=== PATIENT | female | born 1970 | race Caucasian/White ===

== ENCOUNTER 2020-08-29 16:45 | Outpatient (CLI) | payer OTHER, BC, SELFPAY | END 2020-08-29 16:46 | disposition home or self-care (01) | LOC: ANHCOVIDVC 16:45 | PROVIDERS: PCP Internal Medicine | DX: Z23 Encounter for immunization (principal) | CPT/HCPCS: 0001A; 91300 ==

== ENCOUNTER 2020-09-19 16:45 | Outpatient (CLI) | payer OTHER, BC, SELFPAY ==
--- NOTE | 2020-09-19 17:01 | PC.NURSE ---
Patient had first vaccine August 29, positive covid test September 02, patient advised possible worsening of side effects, placed patient in private room. She was adamant about receiving second vaccine dose today.
== END 2020-09-19 16:46 | disposition home or self-care (01) ==
LOC: ANHCOVIDVC 16:45
PROVIDERS: PCP Internal Medicine
DX: Z23 Encounter for immunization (principal)
CPT/HCPCS: 0002A; 91300

== ENCOUNTER → 2021-12-27 11:12 | Outpatient (CLI) | payer BC, SELFPAY ==
--- NOTE | ~2021-12-27 | XR_ITS ---
XR foot LT min 3V DATE: 12/27/2021 11:28 INDICATION: Left foot injury TECHNIQUE: 3 views COMPARISON: None FINDINGS: Mild plantar and posterior calcaneal enthesopathy, without any associated periostitis or er osive change. No fracture or dislocation, periosteal reaction or bone destruction. IMPRESSION: Calcaneal enthesopathy No fracture or dislocation Reviewed, dictated and finalized at location A.
== END ==
PROVIDERS: PCP Family Medicine; Visit Provider Family Medicine
DX: S99.922A Unspecified injury of left foot, initial encounter (principal); X58.XXXA Exposure to other specified factors, initial encounter; M77.32 Calcaneal spur, left foot
CPT/HCPCS: 73630

== ENCOUNTER 2023-05-02 00:38 | Day surgery (SDC) | payer BC, SELFPAY ==
[2023-04-21 13:43] VITALS: BMI 23.3
--- NOTE | 2023-04-30 09:45 | SUR.PREOP ---
Patient called regarding upcoming procedure. Message left on patient's voicemail regarding preop instructions, appointment times, and procedure prep.
[2023-05-02 06:43] VITALS: BP 100/39; PULSE 110; RESP 16; TEMP 36.2; O2SAT 100; BMI 23.3
[2023-05-02] MEDS: LACTATED RINGERS 1,000 ML 150 ML IV CONT (06:52)
--- NOTE | 2023-05-02 07:25 | PM.HPGS ---
History of Present Illness History of Present Illness Consent: Risks, benefits, and alternatives have been discussed and questions answered. Patient agrees to proceed with procedure. Chief complaint: neoplasm screening Narrative: Gertrude Hammer is a 52 year old female Presents for screening colonoscopy. Patient's current weight appetite and bowel movements are normal. Patient denies abdominal pain. She has had no bleeding. Family history noncontributory. Review of Systems Review of Systems: Review of systems noncontributory. [facility] Past Medical History Medical History History of endometrial biopsy Wiley's metatarsalgia, neuralgia, or neuroma, bilateral Surgical History Surgical History H/O breast biopsy H/O foot surgery History of endometrial ablation diagnostic hysteroscopy; endometrial ablation using a NovaSure device History of tubal ligation Family History Family History Father Cancer Thyroid disorder Grandparent Cancer Heart problem Social History Social History (Updated 03/26/23 @ 16:03 by Crystal Avelar DO) Smoking packs per day: 0.5 Smoking cigarettes per day: 10.0 Years smoked: 20 Smoking pack-years: 10.00 Smoking status: Current some day smoker Tobacco type: cigarettes Alcohol intake: current Alcohol use details: Socially Substance use: never Substance use type: does not use Lack of Transportation: No Lack of Food: Never True Current Housing: I Have Housing Concerned About Future Housing: No Difficulty Paying Gas/Electric Bills: No Difficulty Paying for Meds: No Currently Unemployed: No Education: High School Diploma/GED Difficulty w/ Childcare or Family Care: No Living arrangements: with family Occupation/Education: occupation Gender identity (if verbalized by the patient): Female Sexual Orientation (if Verbalized by the Patient): Straight or Heterosexual Meds Home Medications and Allergies Home Medications Medication Instructions Recorded Confirmed Type bupropion HCl 150 mg tablet,12 hr 150 mg PO BID #180 tabs 01/16/23 05/02/23 Rx sustained-release Allergies Allergy/AdvReac Type Severity Reaction Status Date / Time No Known Allergies Allergy Mild Verified 05/02/23 06:41 Vital Signs Vital Signs - 24 hr 05/02/23 06:43 Temperature 97.1 F L Pulse Rate 110 H Respiratory Rate 16 Blood Pressure 100/39 L Pulse Oximetry 100 Oxygen Delivery Room Air Exam Narrative: Physical exam reveals patient to be alert. Vital signs stable. HEENT exam is unremarkable. Patient is anicteric. Lungs are clear to auscultation and percussion. Heart is without murmur or extra sounds. Abdomen bowel sounds are present soft nontender with no organomegaly. Digital external rectal exam is normal. Assessment and Plan Assessment and plan (1) Encounter for screening colonoscopy: Code(s): Z12.11 - Encounter for screening for malignant neoplasm of colon Status: Acute Assessment and Plan: patient presents today for screening colonoscopy. Further recommendations may be given after endoscopy.
--- NOTE | 2023-05-02 07:50 | WPDANESEPPF ---
Anes - Initial Pre Proc Eval Procedure: Operation Date: 05/02/23 08:00 Proposed Procedures p Screening Colonoscopy - Nilton Roque MD Date/Time: 05/02/23 07:50 Surgeon: Nilton Roque MD Pre Op Diagnosis: neoplasm screening Patient Data Age: 52 Gender: F Height: 1.73 m Weight: 69.7 kg Last Vital Signs Temp 97.1 F L 05/02/23 06:43 Pulse 110 H 05/02/23 06:43 Resp 16 05/02/23 06:43 BP 100/39 L 05/02/23 06:43 Pulse Ox 100 05/02/23 06:43 O2 Del Method Room Air 05/02/23 06:43 Allergies Allergy/AdvReac Type Severity Reaction Status Date / Time No Known Allergies Allergy Mild Verified 05/02/23 06:41 Home Medications Medication Instructions Recorded Confirmed Type bupropion HCl 150 mg tablet,12 hr 150 mg PO BID #180 tabs 01/16/23 05/02/23 Rx sustained-release Patient hx anesthesia problems: none Family hx anesthesia problems: none Results Review: All pre-operative results and documents have been reviewed as part of the pre-operative evaluation. [facility] Past Medical History Medical History History of endometrial biopsy Wiley's metatarsalgia, neuralgia, or neuroma, bilateral Surgical History Surgical History H/O breast biopsy H/O foot surgery History of endometrial ablation diagnostic hysteroscopy; endometrial ablation using a NovaSure device History of tubal ligation Family History Family History Father Cancer Thyroid disorder Grandparent Cancer Heart problem Social History Social History (Updated 03/26/23 @ 16:03 by Crystal Avelar DO) Smoking packs per day: 0.5 Smoking cigarettes per day: 10.0 Years smoked: 20 Smoking pack-years: 10.00 Smoking status: Current some day smoker Tobacco type: cigarettes Alcohol intake: current Alcohol use details: Socially Substance use: never Substance use type: does not use Lack of Transportation: No Lack of Food: Never True Current Housing: I Have Housing Concerned About Future Housing: No Difficulty Paying Gas/Electric Bills: No Difficulty Paying for Meds: No Currently Unemployed: No Education: High School Diploma/GED Difficulty w/ Childcare or Family Care: No Living arrangements: with family Occupation/Education: occupation Gender identity (if verbalized by the patient): Female Sexual Orientation (if Verbalized by the Patient): Straight or Heterosexual Anes - Eval Final PreProcedure Day of Procedure 05/02/23 07:50 Patient weight: normal Heart: regular rate and rhythm Lungs: clear to auscultation Airway: Mallampati scale class II Neurological: alert and oriented Last oral intake: >/= 8 hours ASA classification: II Emergent: no Anesthetic plan: proceed Anesthesia type and monitoring: general GIVS and standard monitoring Results Review: All pre-operative results and documents have been reviewed as part of the pre-operative evaluation. Informed Consent: The patient's anesthetic plan and its attendant risks and benefits were discussed with the patient/family/POA. Questions were solicited and answers provided to the satisfaction of the patient/family/POA.
[2023-05-02 08:23] VITALS: BP 106/67; PULSE 91; RESP 18; O2SAT 100
[2023-05-02 08:33] VITALS: BP 109/58; PULSE 90; RESP 18; O2SAT 100
== END 2023-05-02 08:46 | disposition home or self-care (01) ==
PROVIDERS: PCP Family Medicine; Visit Provider Internal Medicine Gastroenterology
PROC: 0DJD8ZZ Inspection of Lower Intestinal Tract, Via Natural or Artificial Opening Endoscopic (ICD-10-PCS; CPT 45378; principal; 2023-05-02 08:00)
DX: Z12.11 Encounter for screening for malignant neoplasm of colon (principal); K64.8 Other hemorrhoids; F17.210 Nicotine dependence, cigarettes, uncomplicated
CPT/HCPCS: 45378; J2704; J7120